=== PATIENT | male | born 1970 | race Caucasian/White ===

== ENCOUNTER 2016-09-09 06:52 | Emergency (ER) | payer BC ==
[~2016-09-09] VITALS: Ht 167.6 cm; Wt 90.7 kg
[2016-09-09 06:55] VITALS: BP 145/89; PULSE 61; RESP 17; TEMP 97.9; O2SAT 99
--- NOTE | 2016-09-09 06:55 | NUR ---
Patient to ER bed 6 for evaluation.
--- NOTE | 2016-09-09 07:05 | NUR ---
Recieved patient resting in bed verbalizing chief complaint of right wrist pain.The patient is unable to rotate or flex wrist without pain.Patient is awake and alert x 4,cooperative and able to make his needs known.Breathing is even and unlabored.VSS, no signs of distress noted.
--- NOTE | 2016-09-09 07:10 | NUR ---
Dr. Teixeira at bedside examining patient.Recieved new orders
[2016-09-09] MEDS ORDERED: KETOROLAC TROMETHAMINE 60 MG/2 ML VIAL IM ONE (07:30)
--- NOTE | 2016-09-09 07:38 | NUR ---
Patient medicated as ordered.Patient tolerated procedure.
[2016-09-09 08:10] VITALS: BP 140/80; PULSE 90; RESP 17; TEMP 98; O2SAT 100
--- NOTE | 2016-09-09 08:10 | NUR ---
Patient given written and verbal discharge instructions and verbalizes understanding.ER MD discussed with patient the results and treatment provided.Patient in stable condition. ID arm band removed. Rx of Ibuprofen given. Patient educated on pain management and to follow up with PMD. Pain Scale [2/10]. Opportunity for questions provided and answered.
== END 2016-09-09 08:10 | disposition home or self-care (01) ==
LOC: SED 06:52
DX: M65.4 Radial styloid tenosynovitis [de Quervain] (principal)
CPT/HCPCS: 29125; 73110; 96372; 99284; J1885